=== PATIENT | male | born 1965 | race Caucasian/White ===

== ENCOUNTER → 2016-07-11 | Outpatient (CLI) | payer OTHER ==
--- NOTE | 2016-07-11 17:23 | US ---
EXAMINATION TYPE: US kidneys/renal and bladder DATE OF EXAM: 07/11/2016 4:41 PM COMPARISON: in PACS, Ct and US CLINICAL HISTORY: history stones , pain left back EXAM MEASUREMENTS: Right Kidney: 11.5 x 3.6 x 3.6 cm Left Kidney: 11.8 x 4.9 x 4.1 cm Post Void Residual Volume: 18.9 ml ANATOMY: TECHNOLOGIST IMPRESSION: Right Kidney: upper pole mixed mass non vascular 1.6 x 1.0 x 1.2 cm, no hydro seen bright probable s tone mid 1.2 x 0.7 x 0.6 cm Left Kidney: no hydro seen small possible stone mid, upper 0.3 x 0.2 x 0.6 cm Bladder: wnl Bilateral Jets seen: yes Normal Post Void Residual: yes There is no evidence for hydronephrosis at this point in time. . . The urinary bladder is anechoic . Bilateral ureteral jets are seen. IMPRESSION: Possible small 3 mm nonobstructing left renal calculus. No hydronephrosis. Satisfactory bladder empty ing. Postvoid estimated volume is 19 mL.
== END | disposition home or self-care (01) ==
LOC: RADUSWWP 16:13
PROVIDERS: ATTEND Urology
DX: R10.9 Unspecified abdominal pain (principal); Z87.442 Personal history of urinary calculi; Z87.448 Personal history of other diseases of urinary system
CPT/HCPCS: 76770

== ENCOUNTER → 2016-11-09 | Outpatient (CLI) | payer OTHER | END | disposition home or self-care (01) | LOC: LABWHC1 13:42 | PROVIDERS: ATTEND Nurse Practitioner | DX: Z47.89 Encounter for other orthopedic aftercare (principal); Z96.60 Presence of unspecified orthopedic joint implant | CPT/HCPCS: 36415; 80183 ==

== ENCOUNTER 2019-02-04 12:33 | Emergency (ER) | payer OTHER ==
[2019-02-04 13:25] VITALS: RESP 18
[2019-02-04] MEDS ORDERED: KETOROLAC 30 MG/ML 1 ML VIAL IVP STA (14:24)
[2019-02-04] MEDS ORDERED: methylPREDNISolone SOD SUCCI 125 MG/2 ML VIAL IV STA (14:24)
--- NOTE | 2019-02-04 14:25 | ED ---
Weakness HPI - General Chief complaint: Weakness Stated complaint: lt foot swelling, pain all over Time Seen by Provider: 02/04/19 13:58 Source: patient, RN notes reviewed Mode of arrival: wheelchair Limitations: no limitations - History of Present Illness Initial comments: This a 53-year-old male presents emergency Department chief complaint of diffuse pain. Patient states he started having issues in September when he is living in [place]. Patient was told that he had some rheumatological issues. Patient states that he was unable to follow-up with a biscuit factory worker in [place] but states he was unable to follow-up with rheumatology. Patient states that he did see Dr. Gannon last week was given Medrol Dosepak states it helped her symptoms but symptoms return. Patient complains of joint swelling, diffuse pain. Patient states pain so bad today that is unable to ambulate. Patient denies any significant past medical history NO KNOWN DRUG ALLERGIES or any new medications. Patient denies any liver or kidney disease no history of DVTs. - Related Data Home Medications Medication Instructions Recorded Confirmed Bone And Immune Vitamin 1 tab PO DAILY 02/04/19 02/04/19 Previous Rx's Medication Instructions Recorded predniSONE 50 mg PO DAILY #5 tab 02/04/19 Allergies Allergy/AdvReac Type Severity Reaction Status Date / Time acetaminophen Allergy Swelling Verified 02/04/19 14:04 [From Tylenol-Codeine #3] codeine phosphate Allergy Swelling Verified 02/04/19 14:04 [From Tylenol-Codeine #3] Review of Systems ROS Statement: Those systems with pertinent positive or pertinent negative responses have been documented in the HPI. ROS Other: All systems not noted in ROS Statement are negative. Past Medical History Past Medical History: GI Bleed, Hypertension Additional Past Medical History / Comment(s): chronic back pain, HX OF GI BLEED R/T gastric ulcers, hx of COLITIS, DIVERTICULITIS History of Any Multi-Drug Resistant Organisms: None Reported Past Surgical History: No Surgical Hx Reported Additional Past Surgical History / Comment(s): ENDOSCOPY R/T GI BLEED IN THE , LAPaROSCOPY, lila fundiplication Past Anesthesia/Blood Transfusion Reactions: No Reported Reaction Past Psychological History: Anxiety, Bipolar, Depression Smoking Status: Current every day smoker Past Alcohol Use History: None Reported Past Drug Use History: Marijuana - Past Family History Mother Family Medical History: Coronary Artery Disease (CAD), Diabetes Mellitus, Pulmonary Embolus Father Family Medical History: Coronary Artery Disease (CAD) General Exam Limitations: no limitations General appearance: alert, in no apparent distress Head exam: Present: atraumatic, normocephalic, normal inspection Neck exam: Present: normal inspection, full ROM. Absent: tenderness, meningismus, lymphadenopathy Respiratory exam: Present: normal lung sounds bilaterally. Absent: respiratory distress, wheezes, rales, rhonchi, stridor Cardiovascular Exam: Present: regular rate, normal rhythm, normal heart sounds. Absent: systolic murmur, diastolic murmur, rubs, gallop, clicks Extremities exam: Present: other (mild swelling lower extremities, tenderness diffusely of upper and lower extremities full range of motion neurovascular intact) Back exam: Present: full ROM. Absent: tenderness, paraspinal tenderness, vertebral tenderness Neurological exam: Present: alert, oriented X3, CN II-XII intact, reflexes normal. Absent: motor sensory deficit Course Vital Signs 02/04/19 02/04/19 13:22 14:30 Temperature 98.4 F Pulse Rate 69 63 Respiratory 18 18 Rate Blood Pressure 124/81 132/84 O2 Sat by Pulse 98 98 Oximetry Medical Decision Making - Medical Decision Making 53-year-old male present emergency department for diffuse pain joint pain. Patient had labs which show evidence of elevated CRP this is concerning for either rheumatic disease. Patient will be given prednisone will follow-up with rheumatology and return for any worsening symptoms. - Lab Data Result diagrams: 02/04/19 14:30 02/04/19 14:30 Lab Results 02/04/19 02/04/19 02/04/19 Range/Units 14:30 14:30 14:30 WBC 8.6 (3.8-10.6) k/uL RBC 4.22 L (4.30-5.90) m/uL Hgb 13.2 (13.0-17.5) gm/dL Hct 41.1 (39.0-53.0) % MCV 97.5 (80.0-100.0) fL MCH 31.2 (25.0-35.0) pg MCHC 32.0 (31.0-37.0) g/dL RDW 16.7 H (11.5-15.5) % Plt Count 301 (150-450) k/uL Neutrophils % 70 % Lymphocytes % 19 % Monocytes % 7 % Eosinophils % 3 % Basophils % 0 % Neutrophils # 6.1 (1.3-7.7) k/uL Lymphocytes # 1.6 (1.0-4.8) k/uL Monocytes # 0.6 (0-1.0) k/uL Eosinophils # 0.2 (0-0.7) k/uL Basophils # 0.0 (0-0.2) k/uL Anisocytosis Slight Macrocytosis Slight Sodium 140 (137-145) mmol/L Potassium 4.3 (3.5-5.1) mmol/L Chloride 106 (98-107) mmol/L Carbon Dioxide 26 (22-30) mmol/L Anion Gap 8 mmol/L BUN 17 (9-20) mg/dL Creatinine 0.57 L (0.66-1.25) mg/dL Est GFR (CKD-EPI)AfAm >90 (>60 ml/min/1.73 sqM) Est GFR (CKD-EPI)NonAf >90 (>60 ml/min/1.73 sqM) Glucose 90 (74-99) mg/dL Calcium 9.7 (8.4-10.2) mg/dL Total Bilirubin 0.7 (0.2-1.3) mg/dL AST 19 (17-59) U/L ALT 16 L (21-72) U/L Alkaline Phosphatase 71 (38-126) U/L C-Reactive Protein 88.3 H (<10.0) mg/L Total Protein 7.2 (6.3-8.2) g/dL Albumin 4.0 (3.5-5.0) g/dL Urine Opiates Screen Not Detected (NotDetected) Ur Oxycodone Screen Not Detected (NotDetected) Urine Methadone Screen Not Detected (NotDetected) Ur Propoxyphene Screen Not Detected (NotDetected) Ur Barbiturates Screen Not Detected (NotDetected) U Tricyclic Antidepress Not Detected (NotDetected) Ur Phencyclidine Scrn Not Detected (NotDetected) Ur Amphetamines Screen Not Detected (NotDetected) U Methamphetamines Scrn Not Detected (NotDetected) U Benzodiazepines Scrn Not Detected (NotDetected) Urine Cocaine Screen Not Detected (NotDetected) U Marijuana (THC) Screen Detected H (NotDetected) Serum Alcohol <10 mg/dL Disposition Clinical Impression: Polyarthralgia Disposition: HOME SELF-CARE Condition: Stable Instructions (If sedation given, give patient instructions): Arthralgia (ED) Additional Instructions: Please return to the Emergency Department if symptoms worsen or any other concerns. Prescriptions: predniSONE 50 mg PO DAILY #5 tab Is patient prescribed a controlled substance at d/c from ED?: No Referrals: Ronny Inman MD [Primary Care Provider] - 1-2 days Becky Reeves MD [STAFF PHYSICIAN] - 1-2 days Time of Disposition: 15:17
[2019-02-04 14:47] LABS: Anisocytosis Slight; Basophils % (A) 0 %; Eosinophils # (A) 0.2 k/uL (0-0.7); Eosinophils % (A) 3 %; HCT 41.1 % (39.0-53.0); HGB 13.2 gm/dL (13.0-17.5); Lymphocytes # (A) 1.6 k/uL (1.0-4.8); Lymphocytes % (A) 19 %; MCH 31.2 pg (25.0-35.0); MCV 97.5 fL (80.0-100.0); Macrocytosis Slight; Mean Platelet Volume 7.4; Monocytes # (A) 0.6 k/uL (0-1.0); Monocytes % (A) 7 %; Neutrophils # (A) 6.1 k/uL (1.3-7.7); Neutrophils % (A) 70 %; Platelet Count 301 k/uL (150-450); RBC 4.22 m/uL (4.30-5.90); RDW 16.7 % (11.5-15.5); WBC 8.6 k/uL (3.8-10.6)
[2019-02-04 14:55] LABS: Amphetamine Screen,Urine Not Detected (NotDetected); Barbiturate Screen,Urine Not Detected (NotDetected); Benzodiazepines Screen,Urine Not Detected (NotDetected); Cocaine Screen,Urine Not Detected (NotDetected); Methadone Screen, Urine Not Detected (NotDetected); Opiate Screen,Urine Not Detected (NotDetected); Oxycodone Screen, Urine Not Detected (NotDetected); Phencyclidine Screen,Urine Not Detected (NotDetected); Tricyclic Antidepressant,Urine Not Detected (NotDetected); Urn Cannabinoid Scrn Detected (NotDetected)
[2019-02-04 14:57] LABS: ALT 16 U/L (21-72); AST 19 U/L (17-59); African American GFR (CKD) >90 (>60 ml/min/1.73 sqM); Alcohol <10 mg/dL; Alkaline Phosphatase 71 U/L (38-126); Anion Gap 8 mmol/L; Blood Urea Nitrogen 17 mg/dL (9-20); C Reactive Protein 88.3 mg/L (<10.0); Calcium 9.7 mg/dL (8.4-10.2); Carbon Dioxide 26 mmol/L (22-30); Chloride 106 mmol/L (98-107); Glucose 90 mg/dL (74-99); Potassium 4.3 mmol/L (3.5-5.1); Sodium 140 mmol/L (137-145); Total Bilirubin 0.7 mg/dL (0.2-1.3); Total Protein 7.2 g/dL (6.3-8.2)
[2019-02-04] MEDS ORDERED: traMADol 50 MG STARTER PACK 3 TAB BTL PO STA (15:17)
[2019-02-04 15:37] VITALS: BP 119/83; PULSE 68; TEMP 98
== END 2019-02-04 15:37 | disposition home or self-care (01) ==
LOC: EC 12:33
DX: M25.50 Pain in unspecified joint (principal); F17.200 Nicotine dependence, unspecified, uncomplicated; Z88.5 Allergy status to narcotic agent; Z88.6 Allergy status to analgesic agent
CPT/HCPCS: 36415; 80053; 85025; 86140; 80306; 99283; 96374; 96375; G0480; J2930; J1885; 80320

== ENCOUNTER → 2019-06-24 | Outpatient (CLI) | payer OTHER ==
--- NOTE | 2019-06-24 14:38 | XR ---
EXAMINATION TYPE: XR chest special 3 views DATE OF EXAM: 06/24/2019 COMPARISON: NONE TECHNIQUE: PA and bilateral oblique views submitted. HISTORY: Positive TB test FINDINGS: The lungs are clear and there is no pneumothorax, pleural effusion, or focal pneumonia. No overt fa ilure. Biapical pleural thickening. Heart size normal. Arthropathy of the shoulders. IMPRESSION: 1. No acute process.
== END | disposition home or self-care (01) ==
LOC: RADXRMAIN 13:50
PROVIDERS: ATTEND Physician Assistant
DX: R76.12 Nonspecific reaction to cell mediated immunity measurement of gamma interferon antigen response without active tuberculosis (principal)
CPT/HCPCS: 71047

== ENCOUNTER → 2020-06-08 | Outpatient (CLI) | payer OTHER ==
--- NOTE | 2020-06-08 14:07 | US ---
EXAMINATION TYPE: US scrotum with doppler. Grayscale and color Doppler Duplex imaging performed of t he scrotum. 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 EXAM MEASUREMENTS: TESTICLES: Right Testicle: 4.7 x 2.3 x 2.8 cm Left Testicle: 4.5 x 2.4 x 3.2 cm EPIDIDYMIS HEAD: Right Epididymis: 1.1 x 0.9 cm Left Epididymis: 1.3 x 1.0 cm, cysts, largest measures 0.8 x 0.5 cm. Doppler performed to assess for testicular vascularity; good bilateral color flow and waveforms are s een. There is no evidence of testicular torsion. Presence of hydroceles: small amount of fluid around left testicle. Presence of varicoceles: none appreciated IMPRESSION: Left epididymal cysts.
== END | disposition home or self-care (01) ==
LOC: RADUSWWP 13:15
PROVIDERS: ATTEND Family Medicine
DX: N50.3 Cyst of epididymis (principal)
CPT/HCPCS: 76870; 93975

== ENCOUNTER → 2020-06-25 | Outpatient (CLI) | payer OTHER ==
--- NOTE | 2020-06-25 17:18 | MR ---
EXAMINATION TYPE: MR knee LT wo con DATE OF EXAM: 06/25/2020 COMPARISON: None HISTORY: Pain and effusion of left knee. TECHNIQUE: Multiplanar, multisequence imaging of the left knee is performed without IV contrast. FINDINGS: Menisci: Small horizontal tear extending towards the superior articular surface may be within the pos terior horn lateral meniscus. Anterior horn lateral meniscus is intact. Some minimal degenerative typ e change may be within the posterior horn medial meniscus. There is an area of increased signal withi n the anterior portion of the posterior horn medial meniscus could be a tear. In the coronal plane th is has more the appearance of internal type I tear in the horizontal plane. Communication with an art icular surface is not identified. Anterior horn medial meniscus appears intact. CRUCIATE LIGAMENTS: The anterior and posterior cruciate ligaments are intact and unremarkable. COLLATERAL LIGAMENTS: The medial collateral ligament and lateral collateral ligament complex are inta ct and unremarkable. EXTENSOR MECHANISM: Visualized quadriceps and patellar tendons are intact. EFFUSION: No significant suprapatellar joint effusion. POPLITEAL CYST: There is a large popliteal cyst which extends out of the [id number] in the calf. This measures at least 16 cm in craniocaudal dimension with an average AP dimension of 2.3 cm. This e xtends from the distal femoral diaphyseal region of the [id number] posterior to the calf musculatu re. TRICOMPARTMENT SPACES: There is narrowing of the medial lateral compartment joint spaces. CARTILAGE: There is diffuse thinning of the articular cartilage in all compartments. BONE MARROW SIGNAL: There is a contusion of the medial aspect lateral femoral condyle mild contusion may be within the medial femoral condyle and to a lesser degree the medial tibial plateau. OTHER: No additional significant abnormality is appreciated. IMPRESSION: 1 Horizontal tear posterior horn lateral meniscus communicating with the superior articular surface. 2. Internal type I tear of the anterior portion posterior horn medial meniscus. Smaller anterior horn lateral meniscal type I tear may be present. 3. Large popliteal cyst 4. Osteoarthritic degenerative change. 5. Contusions of the lateral femoral condyle and small contusions or degenerative type change along t he medial compartment of the knee.
== END | disposition home or self-care (01) ==
LOC: RADMRIMAIN 11:47
PROVIDERS: ATTEND Internal Medicine Rheumatology
DX: S83.282A Other tear of lateral meniscus, current injury, left knee, initial encounter (principal); S83.242A Other tear of medial meniscus, current injury, left knee, initial encounter; M17.12 Unilateral primary osteoarthritis, left knee

== ENCOUNTER 2021-01-24 22:10 | Emergency (ER) | payer OTHER ==
[2021-01-24 22:19] VITALS: TEMP 98.1
[2021-01-24] MEDS ORDERED: ONDANSETRON 4 MG/2 ML VIAL IVP STA (22:25)
[2021-01-24] MEDS ORDERED: HYDROmorphone 1 MG/ML 1 ML SYRINGE IVP STA ×2 (22:25→23:19)
--- NOTE | 2021-01-24 22:40 | ED ---
Fall HPI - General Chief Complaint: Fall Stated Complaint: Fall, Rib Injury Time Seen by Provider: 01/24/21 22:19 Source: patient Mode of arrival: ambulatory - History of Present Illness Initial Comments: 55 year-old male patient presents to the emergency department for evaluation of right sided rib pain. Patient states last night he slipped on wet stairs and fell hitting his right side and left arm on the step. Denies hitting his head or losing consciousness. Denies any neck or back pain. States he has been having significant right rib pain. Pain increases with breathing, movement, or movement of the right arm. Does take home pain medication which is not helping. He denies any use of blood thinning medications. Patient denies any headache, chest pain, shortness of breath, dizziness, weakness, abdominal pain, nausea, vomiting, or difficulties with bowel movements or urination. Denies any hematuria. - Related Data Home Medications Medication Instructions Recorded Confirmed Bone And Immune Vitamin 1 tab PO DAILY 02/04/19 02/04/19 Previous Rx's Medication Instructions Recorded predniSONE 50 mg PO DAILY #5 tab 02/04/19 Ketorolac [Toradol] 10 mg PO Q6HR #12 tab 01/24/21 Lidocaine 5% Patch [Lidoderm] 1 patch TOPICAL DAILY #30 patch 01/24/21 Allergies Allergy/AdvReac Type Severity Reaction Status Date / Time acetaminophen Allergy Swelling Verified 02/04/19 14:04 [From Tylenol-Codeine #3] codeine phosphate Allergy Swelling Verified 02/04/19 14:04 [From Tylenol-Codeine #3] Review of Systems ROS Statement: Those systems with pertinent positive or pertinent negative responses have been documented in the HPI. ROS Other: All systems not noted in ROS Statement are negative. Past Medical History Past Medical History: GI Bleed, Hypertension Additional Past Medical History / Comment(s): chronic back pain, HX OF GI BLEED R/T gastric ulcers, hx of COLITIS, DIVERTICULITIS History of Any Multi-Drug Resistant Organisms: None Reported Past Surgical History: No Surgical Hx Reported Additional Past Surgical History / Comment(s): ENDOSCOPY R/T GI BLEED IN THE , LAPaROSCOPY, lila fundiplication Past Anesthesia/Blood Transfusion Reactions: No Reported Reaction Past Psychological History: Anxiety, Bipolar, Depression Smoking Status: Current every day smoker Past Alcohol Use History: None Reported Past Drug Use History: Marijuana - Past Family History Mother Family Medical History: Coronary Artery Disease (CAD), Diabetes Mellitus, Pulmonary Embolus Father Family Medical History: Coronary Artery Disease (CAD) General Exam Limitations: no limitations General appearance: alert, in no apparent distress, other (This is a well developed, well nourished adult male patient in mild distress related to pain. Vital signs upon arrival are temperature 98.1F, pulse 71, respirations 18, blood pressure 130/79, pulse ox 94% on room air.) Eye exam: Present: normal appearance, PERRL, EOMI. Absent: scleral icterus, conjunctival injection, periorbital swelling ENT exam: Present: normal exam, normal oropharynx, mucous membranes moist Neck exam: Present: normal inspection, full ROM, other (Nontender, no step-off, no deformity to firm midline palpation of the posterior cervical spine. Full range of motion without pain or limitation.). Absent: tenderness, meningismus, lymphadenopathy Respiratory exam: Present: normal lung sounds bilaterally, chest wall tenderness (Right anterolateral lower ribs), other (Small area of ecchymosis noted over the right lateral ribs over the midaxillary line). Absent: respiratory distress, wheezes, rales, rhonchi, stridor Cardiovascular Exam: Present: regular rate, normal rhythm, normal heart sounds. Absent: systolic murmur, diastolic murmur, rubs, gallop, clicks GI/Abdominal exam: Present: soft, tenderness (Midepigastric tenderness), normal bowel sounds, other (There is dark purple abdominal ecchymosis noted over the right upper quadrant.). Absent: distended, guarding, rebound, rigid Extremities exam: Present: normal inspection, full ROM, normal capillary refill. Absent: tenderness, pedal edema, joint swelling, calf tenderness Back exam: Present: normal inspection, other (Nontender, no step-off, no deformity to firm midline palpation of the thoracic and lumbar vertebrae. Full range of motion without pain or limitation.). Absent: vertebral tenderness Neurological exam: Present: alert, oriented X3, CN II-XII intact Psychiatric exam: Present: normal affect, normal mood Skin exam: Present: warm, dry, intact, normal color. Absent: rash Course Vital Signs 01/24/21 01/25/21 22:13 00:02 Temperature 98.1 F Pulse Rate 71 68 Respiratory 18 16 Rate Blood Pressure 138/79 133/74 O2 Sat by Pulse 94 L 98 Oximetry Medical Decision Making - Medical Decision Making 55 year-old male patient presents to the emergency department for evaluation of right rib pain after a fall. Physical exam did reveal right lower anterolateral rib tenderness. Right upper quadrant abdominal ecchymosis and mid epigastric pa in. Labs reviewed and showed small amount of hematuria. Kidney function is normal. Liver enzymes normal. CT abdomen pelvis was unremarkable for acute injury but did show an enhancing renal cyst vs mass on the right. Xray shows right sixth and seventh rib fractures, no lung abnormalities. I did discuss findings with the patient. We discussed pain management. He will be discharged with lidoderm patches and toradol tablets. He does have norco at home. He is educated regarding splinting and use of incentive spirometer. I did discuss the mass vs cyst on the right kidney and presence of hematuria. He does have an appointment with his primary care physician tomorrow, he is instructed to discuss these findings. Return parameters were discussed in detail. He verbalizes understanding and agrees with this plan. Case discussed with my attending Dr. Natarajan. - Lab Data Result diagrams: 01/24/21 22:37 01/24/21 22:37 Lab Results 01/24/21 01/24/21 01/24/21 Range/Units 22:37 22:37 22:37 WBC 11.9 H (3.8-10.6) k/uL RBC 3.98 L (4.30-5.90) m/uL Hgb 14.1 (13.0-17.5) gm/dL Hct 40.4 (39.0-53.0) % MCV 101.6 H (80.0-100.0) fL MCH 35.3 H (25.0-35.0) pg MCHC 34.8 (31.0-37.0) g/dL RDW 13.5 (11.5-15.5) % Plt Count 192 (150-450) k/uL MPV 8.8 Neutrophils % 75 % Lymphocytes % 16 % Monocytes % 7 % Eosinophils % 1 % Basophils % 0 % Neutrophils # 8.9 H (1.3-7.7) k/uL Lymphocytes # 1.9 (1.0-4.8) k/uL Monocytes # 0.9 (0-1.0) k/uL Eosinophils # 0.1 (0-0.7) k/uL Basophils # 0.0 (0-0.2) k/uL Macrocytosis Slight PT 9.7 (9.0-12.0) sec INR 0.9 (<1.2) APTT 23.7 (22.0-30.0) sec Sodium (137-145) mmol/L Potassium (3.5-5.1) mmol/L Chloride (98-107) mmol/L Carbon Dioxide (22-30) mmol/L Anion Gap mmol/L BUN (9-20) mg/dL Creatinine (0.66-1.25) mg/dL Est GFR (CKD-EPI)AfAm (>60 ml/min/1.73 sqM) Est GFR (CKD-EPI)NonAf (>60 ml/min/1.73 sqM) Glucose (74-99) mg/dL Calcium (8.4-10.2) mg/dL Total Bilirubin (0.2-1.3) mg/dL AST (17-59) U/L ALT (4-49) U/L Alkaline Phosphatase (38-126) U/L Total Protein (6.3-8.2) g/dL Albumin (3.5-5.0) g/dL Urine Color Yellow Urine Appearance Clear (Clear) Urine pH 6.5 (5.0-8.0) Ur Specific [place] 1.018 (1.001-1.035) Urine Protein Negative (Negative) Urine Glucose (UA) Negative (Negative) Urine Ketones Negative (Negative) Urine Blood Small H (Negative) Urine Nitrite Negative (Negative) Urine Bilirubin Negative (Negative) Urine Urobilinogen 2.0 (<2.0) mg/dL Ur Leukocyte Esterase Negative (Negative) Urine RBC 31 H (0-5) /hpf Urine WBC 3 (0-5) /hpf Urine Mucus Rare H (None) /hpf 01/24/21 Range/Units 22:37 WBC (3.8-10.6) k/uL RBC (4.30-5.90) m/uL Hgb (13.0-17.5) gm/dL Hct (39.0-53.0) % MCV (80.0-100.0) fL MCH (25.0-35.0) pg MCHC (31.0-37.0) g/dL RDW (11.5-15.5) % Plt Count (150-450) k/uL MPV Neutrophils % % Lymphocytes % % Monocytes % % Eosinophils % % Basophils % % Neutrophils # (1.3-7.7) k/uL Lymphocytes # (1.0-4.8) k/uL Monocytes # (0-1.0) k/uL Eosinophils # (0-0.7) k/uL Basophils # (0-0.2) k/uL Macrocytosis PT (9.0-12.0) sec INR (<1.2) APTT (22.0-30.0) sec Sodium 135 L (137-145) mmol/L Potassium 4.0 (3.5-5.1) mmol/L Chloride 105 (98-107) mmol/L Carbon Dioxide 23 (22-30) mmol/L Anion Gap 7 mmol/L BUN 18 (9-20) mg/dL Creatinine 0.65 L (0.66-1.25) mg/dL Est GFR (CKD-EPI)AfAm >90 (>60 ml/min/1.73 sqM) Est GFR (CKD-EPI)NonAf >90 (>60 ml/min/1.73 sqM) Glucose 104 H (74-99) mg/dL Calcium 9.0 (8.4-10.2) mg/dL Total Bilirubin 0.6 (0.2-1.3) mg/dL AST 21 (17-59) U/L ALT 15 (4-49) U/L Alkaline Phosphatase 110 (38-126) U/L Total Protein 6.0 L (6.3-8.2) g/dL Albumin 3.7 (3.5-5.0) g/dL Urine Color Urine Appearance (Clear) Urine pH (5.0-8.0) Ur Specific [place] (1.001-1.035) Urine Protein (Negative) Urine Glucose (UA) (Negative) Urine Ketones (Negative) Urine Blood (Negative) Urine Nitrite (Negative) Urine Bilirubin (Negative) Urine Urobilinogen (<2.0) mg/dL Ur Leukocyte Esterase (Negative) Urine RBC (0-5) /hpf Urine WBC (0-5) /hpf Urine Mucus (None) /hpf - Radiology Data Radiology results: report reviewed, image reviewed 5 views of the ribs and chest are obtained. Report reviewed in its entirety. Impression by Dr. Medina shows acute anterior right rib fractures. No cardiopulmonary disease. CT abdomen and pelvis with contrast was obtained. Report was reviewed in its entirety. Impression by Dr. Medina shows no acute abnormality of the abdomen and pelvis. There is clearing of the right side renal calculi compared to old exam. There is exophytic mass upper pole right kidney that could be assisted is enlarging compared to old exam. Repeat ultrasound is recommended for further evaluation if clinically indicated. Disposition Clinical Impression: Ribs, multiple fractures, Right kidney mass Disposition: HOME SELF-CARE Condition: Good Instructions (If sedation given, give patient instructions): Rib Fracture (ED) Additional Instructions: 1. Apply ice to the ribs 20 minutes at a time, at least 4-5 times per day. 2. Use incentive spirometer 10 times an hour while awake. This helps prevent pneumonia. 3. Take pain medication as directed. 4. Use a small pillow to splint your ribs when coughing, sneezing, laughing, or moving. 5. Follow up with your primary care physician for recheck in 1-2 days. 6. Return to the emergency department for any new, worsening, or concerning symptoms. You received Dilaudid through the IV while in the emergency department. Prescriptions: Lidocaine 5% Patch [Lidoderm] 1 patch TOPICAL DAILY #30 patch Ketorolac [Toradol] 10 mg PO Q6HR #12 tab Is patient prescribed a controlled substance at d/c from ED?: No Referrals: Ronny Inman MD [Primary Care Provider] - 1-2 days Time of Disposition: 23:59
[2021-01-24 22:52] LABS: Basophils % (A) 0 %; Eosinophils # (A) 0.1 k/uL (0-0.7); Eosinophils % (A) 1 %; HCT 40.4 % (39.0-53.0); HGB 14.1 gm/dL (13.0-17.5); Lymphocytes # (A) 1.9 k/uL (1.0-4.8); Lymphocytes % (A) 16 %; MCH 35.3 pg (25.0-35.0); MCHC 34.8 g/dL (31.0-37.0); MCV 101.6 fL (80.0-100.0); Macrocytosis Slight; Mean Platelet Volume 8.8; Monocytes # (A) 0.9 k/uL (0-1.0); Monocytes % (A) 7 %; Neutrophils # (A) 8.9 k/uL (1.3-7.7); Neutrophils % (A) 75 %; Platelet Count 192 k/uL (150-450); RBC 3.98 m/uL (4.30-5.90); RDW 13.5 % (11.5-15.5); WBC 11.9 k/uL (3.8-10.6)
--- NOTE | 2021-01-24 23:10 | XR ---
EXAMINATION TYPE: XR ribs RT w pa chest xray DATE OF EXAM: 01/24/2021 COMPARISON: Chest x-ray 06/24/2019 HISTORY: Fall. Right-sided rib pain. TECHNIQUE: 5 views FINDINGS: Heart and mediastinum are normal. Lungs are clear of infiltrate. There is no pleural effusi on or pneumothorax. Right shoulder appears intact. There is fracture anterior end of the right sevent h rib. There is probably also fracture anterior right sixth rib. IMPRESSION: Acute anterior right rib fractures. No cardiopulmonary disease.
[2021-01-24 23:11] LABS: ALT 15 U/L (4-49); AST 21 U/L (17-59); African American GFR (CKD) >90 (>60 ml/min/1.73 sqM); Albumin 3.7 g/dL (3.5-5.0); Alkaline Phosphatase 110 U/L (38-126); Anion Gap 7 mmol/L; Blood Urea Nitrogen 18 mg/dL (9-20); Carbon Dioxide 23 mmol/L (22-30); Chloride 105 mmol/L (98-107); Glucose 104 mg/dL (74-99); Non-African American GFR(CKD) >90 (>60 ml/min/1.73 sqM); Sodium 135 mmol/L (137-145); Total Bilirubin 0.6 mg/dL (0.2-1.3)
[2021-01-24 23:14] LABS: INR 0.9 (<1.2); Partial Thromboplastin Time 23.7 sec (22.0-30.0); Prothrombin Time 9.7 sec (9.0-12.0)
[2021-01-24 23:15] LABS: Appearance,Urine Clear (Clear); Bilirubin,Urine Negative (Negative); Blood,Urine Small (Negative); Color,Urine Yellow; Glucose,Urine (UA) Negative (Negative); Ketones,Urine Negative (Negative); Leukocyte Esterase,Urine Negative (Negative); Mucus,Urine Rare /hpf; Nitrite,Urine Negative (Negative); PH, Urine 6.5 (5.0-8.0); Protein,Urine Negative (Negative); RBC,Urine 31 /hpf (0-5); Specific Gravity,Urine 1.018 (1.001-1.035); WBC,Urine 3 /hpf (0-5)
[2021-01-24] MEDS ORDERED: LIDOCAINE 5% PATCH TOPICAL STA (23:19)
--- NOTE | 2021-01-24 23:42 | CT ---
EXAMINATION TYPE: CT abdomen pelvis w con DATE OF EXAM: 01/24/2021 COMPARISON: HISTORY: pain CT DLP: 1401.1 mGycm Automated exposure control for dose reduction was used. CONTRAST: Performed with IV Contrast, patient injected with 100 mL of Isovue 300. Lung bases are clear. There is no pleural effusion. Heart size is normal. There is no pericardial eff usion. There are clips at the gastroesophageal junction. Liver and spleen are intact. The bile ducts are not dilated. Gallbladder appears normal. There is no evidence of pancreatic mass. There is no adrenal mass. Kidneys have normal size. There is 1.7 cm rounded exophytic focus upper rené e right kidney that is probably a cyst. This is also seen on the ultrasound exam of 07/11/2016 and pro bably is increased slightly in size. There is satisfactory contrast opacification of the kidneys. The re is no hydronephrosis. Ureters are not dilated. There is no retroperitoneal adenopathy. Bladder dis tends smoothly. Prostate measures 5 cm with calcification. There is no inguinal hernia. There is no f ree fluid in the pelvis. There is no mesenteric edema. There is no ascites or free air. Appendix is inferior and appears mateo l. There is mild atheromatous change in the abdominal aorta. There is no evidence of a bowel obstruct ion. Lumbar vertebra have normal alignment. There is no compression fracture. There is vacuum disc at L5-S 1. The hip joints are intact. Bony pelvis is intact. IMPRESSION: No acute abnormality of the abdomen pelvis. There is clearing of the right side renal calculi compare d to old exam. There is exophytic mass upper pole right kidney that could be a cyst that is enlarging compared to old exam and repeat ultrasound is recommended for further evaluation if clinically indic ated.
[2021-01-24] MEDS ORDERED: KETOROLAC 15 MG/ML 1 ML VIAL IVP STA (23:47)
[2021-01-25 00:03] VITALS: BP 133/74; PULSE 68; RESP 16
== END 2021-01-25 00:18 | disposition home or self-care (01) ==
LOC: EC 22:10
DX: S22.41XA Multiple fractures of ribs, right side, initial encounter for closed fracture (principal); N28.89 Other specified disorders of kidney and ureter; S30.1XXA Contusion of abdominal wall, initial encounter; I10 Essential (primary) hypertension; F17.200 Nicotine dependence, unspecified, uncomplicated; F12.90 Cannabis use, unspecified, uncomplicated; Z79.1 Long term (current) use of non-steroidal anti-inflammatories (NSAID); Z79.52 Long term (current) use of systemic steroids; Z82.49 Family history of ischemic heart disease and other diseases of the circulatory system; Z83.3 Family history of diabetes mellitus; Z87.11 Personal history of peptic ulcer disease; Z88.5 Allergy status to narcotic agent; Z88.6 Allergy status to analgesic agent; W10.9XXA Fall (on) (from) unspecified stairs and steps, initial encounter
CPT/HCPCS: 36415; 80053; 85025; 85610; 85730; 81001; 71101; 74177; 96374; 96375 ×2; 96376; 99284; J2405; J1170; J1885; Q9967

== ENCOUNTER 2021-01-27 07:34 | Day surgery (SDC) | payer OTHER ==
[2021-01-25 15:09] VITALS: BMI 30.7
[~2021-01-27 07:34] MED LIST: ACETAMINOPHEN TAB 500 MG TAB PO PRN; DEXAMETHASONE SOD PHOSPHATE 4 MG/ML 1 ML VIAL IV ONE; HEPARIN SODIUM,PORCINE/PF 5,000 UNIT/0.5 ML SYRINGE SQ PRN; LACTATED RINGERS 1,000 ML IV SCH; ONDANSETRON 4 MG/2 ML VIAL IVP ONE
[2021-01-27 08:23] VITALS: RESP 16
[2021-01-27 08:28] LABS: Glucose,Whole Blood 125 mg/dL (75-99)
[2021-01-27] MEDS ORDERED: fentaNYL (PF) 50 MCG/ML 2 ML AMP IV ONE ×2 (08:46→08:56)
[2021-01-27] MEDS ORDERED: MIDAZOLAM 2 MG/2 ML VIAL IV ONE (08:46)
--- NOTE | 2021-01-27 09:03 | P.ANPRN ---
Procedure Note - Anesthesia - Nerve Block Performed Bilateral Transversus Abdominis Single Time Out Performed: Yes Date of Procedure: 01/27/21 Procedure Start Time: 08:45 Procedure Stop Time: 08:57 Location of Patient: PreOp Indication: Requested by Surgeon Specifically requested for management of pain by DrSriram: Dominic Hernandez Sedation Type: Sedate with meaningful contact maintained Preparation: Sterile Prep Position: Supine Needle Types: Pajunk Needle Gauge: 20 Ultrasound used to visualize needle placement: Yes Ultrasound used to observe medication spread: Yes Injectate: 0.5% Ropivacaine (see comment for volume) (15 ml +15 ml 0.9 % NS + dexamethasone 4 mg per side) Blood Aspirated: No Pain Paresthesia on Injection Noted: No Resistance on Injection: Normal Image Stored and Saved: Yes Events: Uneventful and Well Tolerated
--- NOTE | 2021-01-27 09:15 | P.GSHP ---
History of Present Illness H&P Date: 01/27/21 Chief Complaint: Recurrent left inguinal hernia This a 55-year-old male who presents today for laparoscopic robot-assisted repair of left inguinal hernia. Patient has complaints of pain and tender mass in the left groin. Past Medical History Past Medical History: GI Bleed, Hypertension, Musculoskeletal Disorder, Osteoarthritis (OA), Rheumatoid Arthritis (RA) Additional Past Medical History / Comment(s): Had a fall on , right 6th and 7th rib fractured. Chronic back pain, neuropathy, hx GI bleed due to gastric ulcers, hx of COLITIS, DIVERTICULITIS. Current cyst on right kidney. Osteoporosis. "Severe Rheumatoid Arthritis." History of Any Multi-Drug Resistant Organisms: None Reported Past Surgical History: No Surgical Hx Reported Additional Past Surgical History / Comment(s): EGD, LAPROSCOPY, Fitz Fundiplication. Past Anesthesia/Blood Transfusion Reactions: No Reported Reaction Past Psychological History: Anxiety, Bipolar, Depression Smoking Status: Current every day smoker Past Alcohol Use History: None Reported Additional Past Alcohol Use History / Comment(s): Trying to quit smoking, currently down to 1/2 PPD, has smoked on and off, has been smoking again for 3 yrs now. Past Drug Use History: Marijuana Additional Drug Use History / Comment(s): Marijuana use 1-2 times daily. Aware no use 24 hrs prior to procedure. - Past Family History Mother Family Medical History: Coronary Artery Disease (CAD), Diabetes Mellitus, Pulmonary Embolus Father Family Medical History: Coronary Artery Disease (CAD) Medications and Allergies Home Medications Medication Instructions Recorded Confirmed Type Ketorolac [Toradol] 10 mg PO Q6HR #12 tab 01/24/21 01/27/21 Rx Lidocaine 5% Patch [Lidoderm] 1 patch TOPICAL DAILY #30 patch 01/24/21 01/25/21 Rx ALPRAZolam [Xanax] 0.5 mg PO QAM 01/25/21 01/27/21 History Gabapentin 300 mg PO TID 01/25/21 01/27/21 History HYDROcodone/APAP 7.5-325MG [[place] 1 tab PO TID 01/25/21 01/27/21 History 7.5-325] predniSONE 2.5 mg PO DAILY 01/25/21 01/27/21 History Allergies Allergy/AdvReac Type Severity Reaction Status Date / Time acetaminophen Allergy Swelling Verified 01/27/21 08:07 [From Tylenol-Codeine #3] codeine phosphate Allergy Swelling Verified 01/27/21 08:07 [From Tylenol-Codeine #3] Surgical - Exam Vital Signs Temp Pulse Resp BP Pulse Ox 97.9 F 57 L 16 139/78 96 01/27/21 08:18 01/27/21 08:18 01/27/21 08:18 01/27/21 08:18 01/27/21 08:18 - General well developed, well nourished, no distress - Eyes PERRL - ENT normal pinna - Neck no masses - Respiratory normal expansion - Cardiovascular Rhythm: regular - Abdomen Abdomen: soft, non tender Hernia: inguinal (Recurrent left we'll hernia) Results - Labs Abnormal Lab Results - Last 24 Hours (Table) 01/27/21 Range/Units 08:21 POC Glucose (mg/dL) 125 H (75-99) mg/dL Assessment and Plan Assessment: Recurrent left we'll hernia. We'll perform laparoscopic robotic-assisted repair.
[2021-01-27] MEDS ORDERED: NEOSTIGMINE 1 MG/ML 10 ML VIAL ONE (09:25)
[2021-01-27] MEDS ORDERED: SUCCINYLCHOLINE CHLORIDE 100 MG/5 ML SYR IV ONE (09:25)
[2021-01-27] MEDS ORDERED: LIDOCAINE 1% INJ 10MG/ML (20 ML MDV) ONE (09:25)
[2021-01-27] MEDS ORDERED: fentaNYL (PF) 50 MCG/ML 2 ML AMP ONE (09:25)
[2021-01-27] MEDS ORDERED: ROCURONIUM 10 MG/ML (5 ML VIAL) IV ONE (09:25)
[2021-01-27] MEDS ORDERED: ROPIVACAINE 5 MG/ML 30 ML VIAL ONE (09:25)
[2021-01-27] MEDS ORDERED: GLYCOPYRROLATE 0.2 MG/ML 2 ML VIAL ONE (09:25)
[2021-01-27] MEDS ORDERED: PROPOFOL 10 MG/ML 20 ML VIAL IV ONE (09:25)
[2021-01-27] MEDS ORDERED: DEXAMETHASONE SOD PHOSPHATE 4 MG/ML 1 ML VIAL ONE (09:25)
[2021-01-27] MEDS ORDERED: KETAMINE 10 MG/ML 20 ML VIAL ONE (09:25)
[2021-01-27] MEDS ORDERED: BUPIVACAINE (PF) 0.25% 30 ML VIAL SQ ONE ×2 (09:49→10:07)
[2021-01-27 10:33] VITALS: TEMP 96.8
[2021-01-27] MEDS: HYDROmorphone 0.5 MG/0.5 ML SYRINGE IVP PRN ×3 (10:36→11:04)
[2021-01-27] MEDS ORDERED: LACTATED RINGERS 1,000 ML IV ONE (11:05)
[2021-01-27] MEDS ORDERED: KETOROLAC 15 MG/ML 1 ML VIAL ONE (11:49)
[2021-01-27] MEDS ORDERED: KETOROLAC 15 MG/ML 1 ML VIAL IVP ONE (11:54)
--- NOTE | 2021-01-27 12:54 | P.OP ---
Date of Procedure: 01/27/21 Preoperative Diagnosis: Recurrent left inguinal hernia Postoperative Diagnosis: Recurrent left internal hernia Procedure(s) Performed: Laparoscopic robotic system repair of recurrent left inguinal hernia Anesthesia: RACHEL Surgeon: Dominic Hernandez Estimated Blood Loss (ml): 5 Pathology: none sent Condition: stable Disposition: PACU Description of Procedure: The patient's placed on the operating table in the supine position. The patient received general anesthesia. The patient's abdomen was prepped and draped in usual sterile fashion. The skin was anesthetized 1% local Xylocaine at the incision sites. Using an 11 blade a skin incision was made at the umbilicus. The fascia was grasped with a Juventino and then the peritoneal cavity was entered with the Veress needle. Position of the Veress needle was confirmed with a positive drop test. After adequate insufflation a 5 mm trocar was placed into the peritoneal cavity. The Laparoscope was placed the peritoneal cavity. And a robotic 8 mm trocar was placed in the right lateral position and then another 8 mm robotic trochars placed in the left lateral position. The original 5 mm trocar was exchanged for a 12 mm trocar. The patient was placed in reverse Trendelenburg and then the patient was docked to the robot. Next the peritoneum over top of the hernia was incised and then using blunt and sharp dissection and electrocautery the hernia sac was dissected free from the floor of the inguinal canal. The hernia sac was completely reduced into the peritoneal cavity. And then using the Pro vp integrity mesh the hernia was repaired. The peritoneum was then sutured with 20V lock suture. The patient was then undocked the robot. The needle was withdrawn from the peritoneal cavity. The umbilical trocar site was closed with 0 Ethibond suture. The skin was closed interrupted 3-0 Monocryl suture. Dermabond dressing was applied. Patient was sent to recovery in stable condition.
[2021-01-27 12:56] VITALS: BP 156/85; PULSE 65
== END 2021-01-27 12:55 | disposition home or self-care (01) ==
LOC: OR 07:34
PROVIDERS: ATTEND Surgery
DX: K40.91 Unilateral inguinal hernia, without obstruction or gangrene, recurrent (principal); M06.9 Rheumatoid arthritis, unspecified; M81.0 Age-related osteoporosis without current pathological fracture; F17.210 Nicotine dependence, cigarettes, uncomplicated; I10 Essential (primary) hypertension; Z79.1 Long term (current) use of non-steroidal anti-inflammatories (NSAID); Z79.52 Long term (current) use of systemic steroids; Z82.49 Family history of ischemic heart disease and other diseases of the circulatory system; Z83.3 Family history of diabetes mellitus; Z87.11 Personal history of peptic ulcer disease; Z88.5 Allergy status to narcotic agent; Z88.6 Allergy status to analgesic agent
CPT/HCPCS: 49651; 64488; C1781; J2250; J1100; J2710; J0690; J2405; J2001; J3010; J2795; J1885; J0330; J2704; J1170; J1644

== ENCOUNTER 2021-02-17 18:39 | Emergency (ER) | payer OTHER ==
--- NOTE | 2021-02-17 19:33 | ED ---
General Adult HPI - General Source: patient Mode of arrival: ambulatory Limitations: no limitations <Estelle Jewell - Last Filed: 02/17/21 21:29> <Bj Natarajan - Last Filed: 02/17/21 22:34> - General Chief complaint: Recheck/Abnormal Lab/Rx Stated complaint: PostOp/Abdominal Pain Time Seen by Provider: 02/17/21 19:24 - History of Present Illness Initial comments: Ordered and is a 55-year-old gentleman presents the ER today for evaluation of left lower quadrant abdominal pain radiating to his groin. Patient had umbilical hernia repair by Dr. Barclay earlier this month. He had follow-up yesterday discussed this discomfort Dr. Barclay was concerned that he may have diverticulitis and started him on oral antibiotics. Despite taking 2 doses of antibiotics patient has persistent pain in the left lower quadrant. Pain with urination. No fevers chills nausea or vomiting. Last bowel movement was earlier today was normal in color caliber and consistency but he did have some discomfort with bowel movement. Patient has had Colonoscopies in the past and states that he had polyps but no other abnormalities. (Estelle Jewell) - Related Data Home Medications Medication Instructions Recorded Confirmed ALPRAZolam [Xanax] 0.5 mg PO DAILY 01/25/21 02/17/21 Gabapentin 300 mg PO TID 01/25/21 02/17/21 HYDROcodone/APAP 7.5-325MG [Walker 1 tab PO TID PRN 01/25/21 02/17/21 7.5-325] Levofloxacin [Levaquin] 500 mg PO DAILY 02/17/21 02/17/21 Allergies Allergy/AdvReac Type Severity Reaction Status Date / Time acetaminophen Allergy Swelling Verified 02/17/21 19:41 [From Tylenol-Codeine #3] codeine phosphate Allergy Swelling Verified 02/17/21 19:41 [From Tylenol-Codeine #3] Review of Systems ROS Other: All systems not noted in ROS Statement are negative. <Estelle Jewell - Last Filed: 02/17/21 21:29> ROS Other: All systems not noted in ROS Statement are negative. <Bj Natarajan - Last Filed: 02/17/21 22:34> ROS Statement: Those systems with pertinent positive or pertinent negative responses have been documented in the HPI. Past Medical History Past Medical History: GI Bleed, Hypertension Additional Past Medical History / Comment(s): chronic back pain, HX OF GI BLEED R/T gastric ulcers, hx of COLITIS, DIVERTICULITIS History of Any Multi-Drug Resistant Organisms: None Reported Past Surgical History: No Surgical Hx Reported Additional Past Surgical History / Comment(s): ENDOSCOPY R/T GI BLEED IN THE , LAPaROSCOPY, lila fundiplication Past Anesthesia/Blood Transfusion Reactions: No Reported Reaction Past Psychological History: Anxiety, Bipolar, Depression Smoking Status: Current every day smoker Past Alcohol Use History: None Reported Past Drug Use History: Marijuana - Past Family History Mother Family Medical History: Coronary Artery Disease (CAD), Diabetes Mellitus, Pulmonary Embolus Father Family Medical History: Coronary Artery Disease (CAD) <Estelle Jewell P - Last Filed: 02/17/21 21:29> General Exam Limitations: no limitations <Estelle Jewell P - Last Filed: 02/17/21 21:29> General appearance: alert, in no apparent distress Head exam: Present: atraumatic, normocephalic, normal inspection Eye exam: Present: normal appearance, PERRL, EOMI. Absent: scleral icterus, conjunctival injection, periorbital swelling ENT exam: Present: normal exam, mucous membranes moist Neck exam: Present: normal inspection. Absent: tenderness, meningismus, lymphadenopathy Respiratory exam: Present: normal lung sounds bilaterally. Absent: respiratory distress, wheezes, rales, rhonchi, stridor Cardiovascular Exam: Present: regular rate, normal rhythm, normal heart sounds. Absent: systolic murmur, diastolic murmur, rubs, gallop, clicks GI/Abdominal exam: Present: soft, normal bowel sounds. Absent: distended, tenderness, guarding, rebound, rigid Extremities exam: Present: normal inspection, full ROM, normal capillary refill. Absent: tenderness, pedal edema, joint swelling, calf tenderness Back exam: Present: normal inspection Neurological exam: Present: alert, oriented X3, CN II-XII intact Psychiatric exam: Present: normal affect, normal mood Skin exam: Present: warm, dry, intact, normal color. Absent: rash <Bj Natarajan - Last Filed: 02/17/21 22:34> - General Exam Comments Initial Comments: Physical Exam GENERAL: Patient is well-developed and well-nourished. Patient is nontoxic and well-hydrated and is in no distress. HENT: Normocephalic, Atraumatic. EYES: PERRL, EOMI PULMONARY: Unlabored respirations. CARDIOVASCULAR: RRR Warm and well perfused extremities ABDOMEN: LLQ tenderness SKIN: No rashes or bruising : Deferred NEUROLOGIC: Alert and oriented Normal speech Normal gait MUSCULOSKELETAL: Moving all extremities with no apparent injury PSYCHIATRIC: No SI/HI (Estelle Jewell) Course <Bj Natarajan - Last Filed: 02/17/21 22:34> Vital Signs 02/17/21 19:17 Temperature 98.7 F Pulse Rate 77 Respiratory 18 Rate Blood Pressure 144/95 O2 Sat by Pulse 96 Oximetry - Reevaluation(s) Reevaluation #1: 02/17/21 22:33 Medical records reviewed (Bj Natarajan) Reevaluation #2: 02/17/21 22:33 symptoms are significantly improved here in the ER (Bj Natarajan) Reevaluation #3: 02/17/21 22:34 Patient informed results and questions are answered (Bj Natarajan) Medical Decision Making - Lab Data Result diagrams: 02/17/21 19:36 02/17/21 19:36 <Estelle Jewell - Last Filed: 02/17/21 21:29> - Lab Data Result diagrams: 02/17/21 19:36 02/17/21 19:36 - Radiology Data Radiology results: report reviewed (CT abdomen and pelvis is positive for 2 right-sided ureteral stones), image reviewed <Bj Natarajan - Last Filed: 02/17/21 22:34> - Medical Decision Making 55 male to the ER today for evaluation patient's found of unilateral kidney stones, patient given symptom management to be discharged home with follow-up with urology (Bj Natarajan) - Lab Data Lab Results 02/17/21 02/17/21 02/17/21 Range/Units 19:36 19:36 19:36 WBC 7.5 (3.8-10.6) k/uL RBC 4.44 (4.30-5.90) m/uL Hgb 15.6 (13.0-17.5) gm/dL Hct 45.7 (39.0-53.0) % MCV 102.9 H (80.0-100.0) fL MCH 35.2 H (25.0-35.0) pg MCHC 34.2 (31.0-37.0) g/dL RDW 14.0 (11.5-15.5) % Plt Count 268 (150-450) k/uL MPV 7.9 Neutrophils % 61 % Lymphocytes % 26 % Monocytes % 8 % Eosinophils % 2 % Basophils % 1 % Neutrophils # 4.6 (1.3-7.7) k/uL Lymphocytes # 2.0 (1.0-4.8) k/uL Monocytes # 0.6 (0-1.0) k/uL Eosinophils # 0.1 (0-0.7) k/uL Basophils # 0.1 (0-0.2) k/uL Macrocytosis Slight Sodium 137 (137-145) mmol/L Potassium 4.7 (3.5-5.1) mmol/L Chloride 106 (98-107) mmol/L Carbon Dioxide 24 (22-30) mmol/L Anion Gap 7 mmol/L BUN 18 (9-20) mg/dL Creatinine 0.66 (0.66-1.25) mg/dL Est GFR (CKD-EPI)AfAm >90 (>60 ml/min/1.73 sqM) Est GFR (CKD-EPI)NonAf >90 (>60 ml/min/1.73 sqM) Glucose 95 (74-99) mg/dL Plasma Lactic Acid Mikhail 1.5 (0.7-2.0) mmol/L Calcium 9.3 (8.4-10.2) mg/dL Magnesium 2.0 (1.6-2.3) mg/dL Total Bilirubin 1.0 (0.2-1.3) mg/dL AST 29 (17-59) U/L ALT 15 (4-49) U/L Alkaline Phosphatase 63 (38-126) U/L C-Reactive Protein 3.1 H (<1.0) mg/dL Total Protein 6.8 (6.3-8.2) g/dL Albumin 4.2 (3.5-5.0) g/dL Urine Color Urine Appearance (Clear) Urine pH (5.0-8.0) Ur Specific [place] (1.001-1.035) Urine Protein (Negative) Urine Glucose (UA) (Negative) Urine Ketones (Negative) Urine Blood (Negative) Urine Nitrite (Negative) Urine Bilirubin (Negative) Urine Urobilinogen (<2.0) mg/dL Ur Leukocyte Esterase (Negative) Urine RBC (0-5) /hpf Urine WBC (0-5) /hpf Urine Mucus (None) /hpf 02/17/21 Range/Units 21:24 WBC (3.8-10.6) k/uL RBC (4.30-5.90) m/uL Hgb (13.0-17.5) gm/dL Hct (39.0-53.0) % MCV (80.0-100.0) fL MCH (25.0-35.0) pg MCHC (31.0-37.0) g/dL RDW (11.5-15.5) % Plt Count (150-450) k/uL MPV Neutrophils % % Lymphocytes % % Monocytes % % Eosinophils % % Basophils % % Neutrophils # (1.3-7.7) k/uL Lymphocytes # (1.0-4.8) k/uL Monocytes # (0-1.0) k/uL Eosinophils # (0-0.7) k/uL Basophils # (0-0.2) k/uL Macrocytosis Sodium (137-145) mmol/L Potassium (3.5-5.1) mmol/L Chloride (98-107) mmol/L Carbon Dioxide (22-30) mmol/L Anion Gap mmol/L BUN (9-20) mg/dL Creatinine (0.66-1.25) mg/dL Est GFR (CKD-EPI)AfAm (>60 ml/min/1.73 sqM) Est GFR (CKD-EPI)NonAf (>60 ml/min/1.73 sqM) Glucose (74-99) mg/dL Plasma Lactic Acid Mikhail (0.7-2.0) mmol/L Calcium (8.4-10.2) mg/dL Magnesium (1.6-2.3) mg/dL Total Bilirubin (0.2-1.3) mg/dL AST (17-59) U/L ALT (4-49) U/L Alkaline Phosphatase (38-126) U/L C-Reactive Protein (<1.0) mg/dL Total Protein (6.3-8.2) g/dL Albumin (3.5-5.0) g/dL Urine Color Yellow Urine Appearance Clear (Clear) Urine pH 6.0 (5.0-8.0) Ur Specific [place] 1.049 H (1.001-1.035) Urine Protein 1+ H (Negative) Urine Glucose (UA) Negative (Negative) Urine Ketones 2+ H (Negative) Urine Blood Moderate H (Negative) Urine Nitrite Negative (Negative) Urine Bilirubin Negative (Negative) Urine Urobilinogen 3.0 (<2.0) mg/dL Ur Leukocyte Esterase Negative (Negative) Urine RBC 35 H (0-5) /hpf Urine WBC <1 (0-5) /hpf Urine Mucus Many H (None) /hpf Disposition Is patient prescribed a controlled substance at d/c from ED?: No <Estelle Jewell P - Last Filed: 02/17/21 21:29> Is patient prescribed a controlled substance at d/c from ED?: No <Bj Natarajan - Last Filed: 02/17/21 22:34> Clinical Impression: Kidney stone, Abnormal CT scan, kidney, Right ureteral stone, Right kidney mass Disposition: HOME SELF-CARE Condition: Good Referrals: Ronny Inman MD [Primary Care Provider] - 1-2 days
[2021-02-17 19:46] LABS: Basophils # (A) 0.1 k/uL (0-0.2); Basophils % (A) 1 %; Eosinophils # (A) 0.1 k/uL (0-0.7); Eosinophils % (A) 2 %; HCT 45.7 % (39.0-53.0); HGB 15.6 gm/dL (13.0-17.5); Lymphocytes % (A) 26 %; MCH 35.2 pg (25.0-35.0); MCHC 34.2 g/dL (31.0-37.0); MCV 102.9 fL (80.0-100.0); Macrocytosis Slight; Mean Platelet Volume 7.9; Monocytes # (A) 0.6 k/uL (0-1.0); Monocytes % (A) 8 %; Neutrophils # (A) 4.6 k/uL (1.3-7.7); Neutrophils % (A) 61 %; Platelet Count 268 k/uL (150-450); RBC 4.44 m/uL (4.30-5.90); WBC 7.5 k/uL (3.8-10.6)
[2021-02-17 20:01] LABS: ALT 15 U/L (4-49); AST 29 U/L (17-59); African American GFR (CKD) >90 (>60 ml/min/1.73 sqM); Albumin 4.2 g/dL (3.5-5.0); Alkaline Phosphatase 63 U/L (38-126); Anion Gap 7 mmol/L; Blood Urea Nitrogen 18 mg/dL (9-20); C Reactive Protein 3.1 mg/dL (<1.0); Calcium 9.3 mg/dL (8.4-10.2); Carbon Dioxide 24 mmol/L (22-30); Chloride 106 mmol/L (98-107); Glucose 95 mg/dL (74-99); Non-African American GFR(CKD) >90 (>60 ml/min/1.73 sqM); Potassium 4.7 mmol/L (3.5-5.1); Sodium 137 mmol/L (137-145); Total Protein 6.8 g/dL (6.3-8.2)
[2021-02-17 21:15] VITALS: RESP 18
[2021-02-17] MEDS ORDERED: MORPHINE SULFATE 4 MG/ML SYRINGE IVP STA (21:16)
--- NOTE | 2021-02-17 21:22 | CT ---
EXAMINATION TYPE: CT abdomen pelvis w con DATE OF EXAM: 02/17/2021 COMPARISON: 01/24/2021 HISTORY: LLQ abdominal pain, umbilical hernia repair 01/27, pt states he also has fractured ribs. CT DLP: 1576.2 mGycm Automated exposure control for dose reduction was used. TECHNIQUE: Helical acquisition of images was performed from the lung bases through the pelvis. CONTRAST: Performed without Oral Contrast and with IV Contrast, patient injected with 100 mL of Isovue 300. FINDINGS: LUNG BASES: Normal. LIVER: Too small to characterize hypodense lesion. BILIARY SYSTEM: Normal. PANCREAS: Normal. SPLEEN: Normal. ADRENALS: Normal. KIDNEYS: There is a 2.1 cm exophytic right renal upper pole solid renal mass which has increased in s ize versus 2015. No hydronephrosis bilaterally. Within the right distal ureter there are at least 2 l ayering stones measuring 5 and 4 mm, with mild periureteral inflammatory stranding. BOWEL: No obstruction or thickening. Postsurgical changes at the GE junction. PERITONEUM: No pneumoperitoneum. No free fluid. LYMPH NODES: No lymphadenopathy. PELVIS: Normal. VASCULATURE: No abdominal aortic aneurysm. MUSCULOSKELETAL: Degenerative changes of the spine. IMPRESSION: 1. Right renal 2.1 cm exophytic solid renal mass, increased in size versus 2015. Recommend further c haracterization with MRI abdomen renal mass protocol. 2. At least 2 layering stones within the distal right ureter measuring 4 and 5 mm, with mild periure teral inflammatory stranding. There is no hydroureteronephrosis.
[2021-02-17 21:51] LABS: Appearance,Urine Clear (Clear); Bilirubin,Urine Negative (Negative); Blood,Urine Moderate (Negative); Color,Urine Yellow; Glucose,Urine (UA) Negative (Negative); Ketones,Urine 2+ (Negative); Leukocyte Esterase,Urine Negative (Negative); Mucus,Urine Many /hpf; Nitrite,Urine Negative (Negative); Protein,Urine 1+ (Negative); RBC,Urine 35 /hpf (0-5); WBC,Urine <1 /hpf (0-5)
[2021-02-17 21:53] LABS: Specific Gravity,Urine 1.049 (1.001-1.035)
[2021-02-17] MEDS ORDERED: ONDANSETRON 4 MG ODT STARTER PACK 2 TAB BTL PO STA (22:35)
[2021-02-17] MEDS ORDERED: TAMSULOSIN 0.4 MG CAP.ER.24H PO STA (22:35)
[2021-02-17] MEDS ORDERED: IBUPROFEN 600 MG STARTER PACK 4 TAB BTL PO STA (22:35)
[2021-02-17] MEDS ORDERED: traMADol 50 MG STARTER PACK 3 TAB BTL PO STA (22:35)
[2021-02-17] MEDS ORDERED: traMADol 50 MG TAB PO STA (22:35)
[2021-02-17] MEDS ORDERED: KETOROLAC 15 MG/ML 1 ML VIAL IVP STA (22:35)
[2021-02-17 22:37] VITALS: BP 135/92; PULSE 65; TEMP 98.9
[2021-02-17] MEDS ORDERED: HYDROmorphone 1 MG/ML 1 ML SYRINGE IVP STA (23:19)
== END 2021-02-17 23:27 | disposition home or self-care (01) ==
LOC: EC 18:39
DX: N20.2 Calculus of kidney with calculus of ureter (principal); N28.89 Other specified disorders of kidney and ureter; I10 Essential (primary) hypertension; F41.9 Anxiety disorder, unspecified; F31.9 Bipolar disorder, unspecified; F17.200 Nicotine dependence, unspecified, uncomplicated; F12.90 Cannabis use, unspecified, uncomplicated; Z88.6 Allergy status to analgesic agent
CPT/HCPCS: 99284; 96374; 96375; 36415; 80053; 83605; 83735; 85025; 86140; 81001; 74177; J2270; J1885; S0119; Q9967

== ENCOUNTER → 2021-03-04 | Outpatient (CLI) | payer OTHER ==
--- NOTE | 2021-03-05 10:01 | US ---
EXAMINATION TYPE: US kidneys/renal and bladder DATE OF EXAM: 03/04/2021 COMPARISON: CT, US CLINICAL HISTORY: N28.1 Cyst of kidney, acquired. Cyst of kidney. Hx stones. EXAM MEASUREMENTS: Right Kidney: 11.6 x 5.6 x 4.9 cm Left Kidney: 12.4 x 5.4 x 5.4 cm Right Kidney: Hypoechoic area seen superior pole: 2.1 x 2.1 x 2.4 cm. Left Kidney: Appears slightly enlarged versus upper limits of normal. Collecting system appears minim ally dilated. Bladder: Anechoic. Bilateral Jets seen: Yes. IMPRESSION: 1. Mild prominence of the left renal collecting system of uncertain etiology. 2. Right renal cystic lesion.
== END | disposition home or self-care (01) ==
LOC: RADUSWWP 15:12
PROVIDERS: ATTEND Family Medicine
DX: N28.1 Cyst of kidney, acquired (principal); Z87.442 Personal history of urinary calculi
CPT/HCPCS: 76770